=== PATIENT | male | born 1980 | race Caucasian/White ===

== ENCOUNTER 2018-06-27 19:03 | Emergency (ER) | payer OTHER ==
[2018-06-27 19:12] VITALS: BP 129/63; PULSE 86; TEMP 98; BMI 38.6
[2018-06-27 19:32] LABS: BASO % 0.7 % (0-2.0); EOS % 1.3 % (0-4.5); HEMATOCRIT 42.9 % (35.4-49); HEMOGLOBIN 14.8 GM/dL (11.7-16.9); LYMPH % 45.2 % (8-40); MCH 28.1 pg (25.7-33.7); MCHC 34.4 g/dl (32.0-35.9); MEAN CELL VOLUME 81.7 fl (80-96); MEAN PLT VOLUME 9.5 fl (7.5-11.1); MONO % 6.9 % (3.8-10.2); NEUT % 45.9 % (42.8-82.8); PLATELET COUNT 275 K/MM3 (134-434); RBC 5.26 M/mm3 (4.00-5.60); WHITE BLOOD COUNT 8.2 K/mm3 (4.0-10.0)
--- NOTE | 2018-06-27 19:33 | PDOC ---
History of Present Illness <Cole Hayes - Last Filed: 06/27/18 21:19> - History of Present Illness Initial Comments: 37yo M with history of HLD complaining of chest pain. Patient states the pain started three days ago and he feels like he got hit in the chest. 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 It is rated 10/10 at its worst, non- exertional, and non-radiating. No nausea, vomiting, or diaphoresis. It is non- radiating. The pain is at its worst in the morning and gradually improving throughout the day, now rated 3/10. He can replicate his pain by squeezing his chest by hunching over. No personal or family history of GA. Denies shortness of breath. No hemoptysis, no recent surgical history, no recent mobilization, no hormone use, no history of DVT or PE. Denies fever or chills. <Kerry Lazo - Last Filed: 06/27/18 23:46> - General Chief Complaint: Chest Pain Stated Complaint: CHEST AND BACK PAIN Time Seen by Provider: 06/27/18 19:30 Past History <Cole Hayes - Last Filed: 06/27/18 21:19> - Past Medical History COPD: No Hypercholesterolemia: Yes - Suicide/Smoking/Psychosocial Hx Smoking History: Never smoked Have you smoked in the past 12 months: No Information on smoking cessation initiated: No Hx Alcohol Use: No Drug/Substance Use Hx: No <Kerry Lazo - Last Filed: 06/27/18 23:46> - Past Medical History Allergies/Adverse Reactions: Allergies Allergy/AdvReac Type Severity Reaction Status Date / Time No Known Allergies Allergy Verified 06/27/18 19:12 *Physical Exam - Vital Signs Last Vital Signs Temp Pulse Resp BP Pulse Ox 98.0 F 86 16 129/63 100 06/27/18 19:10 06/27/18 19:10 06/27/18 19:10 06/27/18 19:10 06/27/18 19:10 <Cole Hayes - Last Filed: 06/27/18 21:19> - Vital Signs Last Vital Signs Temp Pulse Resp BP Pulse Ox 98.0 F 86 16 129/63 100 06/27/18 19:09 06/27/18 19:09 06/27/18 19:09 06/27/18 19:09 06/27/18 19:09 <Kerry Lazo - Last Filed: 06/27/18 23:46> Moderate Sedation - Procedure Monitoring Vital Signs: Procedure Monitoring Vital Signs Temperature 98.0 F 06/27/18 19:10 Pulse Rate 86 06/27/18 19:10 Respiratory Rate 16 06/27/18 19:10 Blood Pressure 129/63 06/27/18 19:10 O2 Sat by Pulse Oximetry (%) 100 06/27/18 19:10 <Cole Hayes - Last Filed: 06/27/18 21:19> - Procedure Monitoring Vital Signs: Procedure Monitoring Vital Signs Temperature 98.0 F 06/27/18 19:09 Pulse Rate 86 06/27/18 19:09 Respiratory Rate 16 06/27/18 19:09 Blood Pressure 129/63 06/27/18 19:09 O2 Sat by Pulse Oximetry (%) 100 06/27/18 19:09 <Kerry Lazo - Last Filed: 06/27/18 23:46> ED Treatment Course - LABORATORY CBC & Chemistry Diagram: 06/27/18 19:07 06/27/18 19:07 - ADDITIONAL ORDERS Additional order review: Laboratory Results 06/27/18 19:07 Sodium 139 Potassium 4.2 Chloride 104 Carbon Dioxide 30 Anion Gap 6 L BUN 14 Creatinine 1.2 Creat Clearance w eGFR > 60 Random Glucose 114 H Calcium 9.0 Total Bilirubin 0.5 AST 34 ALT 80 H Alkaline Phosphatase 86 Creatine Kinase 436 H Creatine Kinase Index 0.7 CK-MB (CK-2) 3.3 Troponin I < 0.02 Total Protein 8.1 Albumin 4.1 06/27/18 19:07 RBC 5.26 MCV 81.7 MCHC 34.4 RDW 14.0 MPV 9.5 Neutrophils % 45.9 Lymphocytes % 45.2 H Monocytes % 6.9 Eosinophils % 1.3 Basophils % 0.7 - Medications Given in the ED: ED Medications Discontinued Medications Generic Name Dose Route Start Last Admin Trade Name Freq PRN Reason Stop Dose Admin Acetaminophen 1,000 mg 06/27/18 20:05 06/27/18 20:34 Ofirmev Injection - IVPB 06/27/18 20:06 1,000 mg ONCE ONE Administration <Cole Hayes - Last Filed: 06/27/18 21:19> - LABORATORY CBC & Chemistry Diagram: 06/27/18 19:07 06/27/18 19:07 <Kerry Lazo - Last Filed: 06/27/18 23:46> *DC/Admit/Observation/Transfer - Discharge Dispostion Decision to Admit order: No <Freddy,Cole - Last Filed: 06/27/18 21:19> <Kerry Lazo - Last Filed: 06/27/18 23:46> Diagnosis at time of Disposition: Atypical chest pain - Discharge Dispostion Disposition: HOME - Referrals Referrals: Brandan Sprague MD [Staff Physician] - - Patient Instructions Printed Discharge Instructions: DI for Atypical Chest Pain Additional Instructions: Follow-up with your primary care provider next week. Return to the emergency department for any severe worsening symptoms or for any concerns. Okay to take [id number] Tylenol as directed on package as needed for pain. - Post Discharge Activity Forms/Work/School Notes: Back to Work
[2018-06-27 20:05] LABS: ALBUMIN 4.1 g/dl (3.4-5.0); ALK PHOS 86 U/L (45-117); ANION GAP 6 MMOL/L (8-16); BILIRUBIN,TOTAL 0.5 mg/dL (0.2-1); BLOOD UREA NITROGEN 14 mg/dL (7-18); CHLORIDE 104 mmol/L (98-107); CO2 30 mmol/L (21-32); CREATININE 1.2 mg/dL (0.55-1.3); GLUCOSE,RANDOM 114 mg/dL (74-106); POTASSIUM 4.2 mmol/L (3.5-5.1); SGOT/AST 34 U/L (15-37); SGPT/ALT 80 U/L (13-61); SODIUM 139 mmol/L (136-145); TOT PROT 8.1 g/dl (6.4-8.2)
[2018-06-27] MEDS ORDERED: ACETAMINOPHEN 1000 MG/100 ML VIAL (NON FORMULARY) IVPB ONE (20:05)
[2018-06-27] MEDS ORDERED: ACETAMINOPHEN INJECTION 100 ML IVPB ONE (20:28)
--- NOTE | 2018-06-27 21:01 | PDOC ---
Attending Attestation - HPI HPI: This patient is a 37 year old Nepalese-speaking male, with PMHx of HLD, lung infection (2008), comatose for 1 week [place] in [place] in the past, who presents with 3 days of chest pain. He describes his chest pain as strong, left-sided, worse when leaning forward, rates 3/10 upon arrival to ER, currently 6/10. He also complains of neck and back pain. Denies any palpitations or shortness of breath. Social Hx: Works in construction. Denies smoking history. 06/27/18 21:10 - Physicial Exam PE: Vitals: Triage Vital signs reviewed General Appearance: no acute distress, well nourished well developed Head: Atraumatic Neck: Supple; No Nuchal rigidity Chest Wall: Nontender Cardiac: Regular rate and rhythm, no murmurs, no rubs, no gallops Lungs: Clear to auscultation bilateral, good air movement bilaterally Extremities: Full range of motion to all extremities, no cyanosis, clubbing, or edema Skin: Warm and dry, no rashes or lesions, no rash, no petechiae Neuro: AOX3; Strength intact to all extremities, Sensation intact to all extremities, gait normal Psych: Normal mood, normal affect <Monie Arana - Last Filed: 06/27/18 21:13> - Resident Resident Name: Kerry Lazo - ED Attending Attestation I have performed the following: I have examined & evaluated the patient, The case was reviewed & discussed with the resident, I agree w/resident's findings & plan, Exceptions are as noted - Medical Decision Making 06/27/18 21:23 Heart score 1 atypical story Chest x-ray within normal limits troponin negative 1 Patient will follow up with his primary care provider this week Likely musculoskeletal nonexertional in nature Findings, the need for follow-up and strict return instructions discussed with patient. <Cole Hayes - Last Filed: 06/27/18 21:24> Heart Score/ECG Review - History History: Slightly suspicious - Electrocardiogram EKG: Normal - Age Age: </= 45 - Risk Factors Risk Factors Heart Score: Yes Hx Hypercholesterolemia Based on the list above the patient has:: 1-2 risk factors - Troponin Troponin: </= normal limit - Score Heart Score - Total: 1 - ECG Impressions Comment:: 06/27/18 21:22 EKG performed at 1913 demonstrates normal sinus rhythm no ST elevations isolated T-wave inversion in lead 3 Interpreted by me. <Cole Hayes - Last Filed: 06/27/18 21:24>
--- NOTE | 2018-06-28 16:51 | EKG ---
Test Reason : Blood Pressure : / mmHG Vent. Rate : 076 BPM Atrial Rate : 076 BPM P-R Int : 166 ms QRS Dur : 108 ms QT Int : 380 ms P-R-T Axes : 030 043 017 degrees QTc Int : 427 ms NORMAL SINUS RHYTHM NORMAL ECG NO PREVIOUS ECGS AVAILABLE Confirmed by MD ANGELINE, CECE ([id number]) on 06/28/2018 4:51:22 PM Referred By: Confirmed By:CECE MARCUS MD
== END 2018-06-27 21:54 | disposition home or self-care (01) ==
LOC: JER 19:03
PROC: 3E033NZ Introduction of Analgesics, Hypnotics, Sedatives into Peripheral Vein, Percutaneous Approach (ICD-10-PCS; principal; 2018-06-27)
DX: R07.89 Other chest pain (principal); E78.5 Hyperlipidemia, unspecified
CPT/HCPCS: 36415; 71046-TC-FY; 80053; 82550; 82553; 84484; 85025; 93005; 93010; 96374; 99284-25; J0131

== ENCOUNTER 2018-11-03 08:40 | Emergency (ER) | payer OTHER | END 2018-11-03 10:08 | disposition home or self-care (01) | LOC: JERFT 08:40 ==

== ENCOUNTER 2023-07-27 13:35 | Emergency (ER) | payer OTHER ==
[2023-07-27 13:42] VITALS: RESP 18; BMI 44.7
[2023-07-27] MEDS ORDERED: TETRACAINE/BENZOCAINE/BUTAMBEN 20 GM SPR TP ONE (14:21)
[2023-07-27] MEDS ORDERED: BENZOCAINE 20% 57 GM BOTTLE TP ONE (14:31)
[2023-07-27 15:41] LABS: EOS % 1.7 % (0-4.5); HEMOGLOBIN 14.5 GM/dL (11.7-16.9); LYMPH % 45.7 % (8-40); MCH 26.4 pg (25.7-33.7); MCHC 32.2 g/dl (32.0-35.9); MEAN PLT VOLUME 9.1 fl (7.5-11.1); MONO % 8.9 % (3.8-10.2); NEUT % 42.7 % (42.8-82.8); PLATELET COUNT 265 10^3/uL (134-434); RBC 5.49 M/mm3 (4.00-5.60); RDW 14.6 % (11.9-15.9); WHITE BLOOD COUNT 5.6 K/mm3 (4.0-10.0)
[2023-07-27 15:47] LABS: INR 1.07 (0.83-1.09); PROTHROMBIN TIME (PATIENT) 12.4 SEC (9.7-13.0)
[2023-07-27 15:49] LABS: ACTIVATED PTT 31.6 SECONDS (25.2-36.5)
[2023-07-27 15:59] LABS: POTASSIUM 4.6 mmol/L (3.5-5.1)
[2023-07-27 16:01] LABS: CALCIUM 10.1 mg/dL (8.5-10.1)
[2023-07-27 16:03] LABS: BLOOD UREA NITROGEN 12.6 mg/dL (7-18)
[2023-07-27 16:07] LABS: BILIRUBIN,TOTAL 0.7 mg/dL (0.2-1); TOT PROT 7.5 g/dl (6.4-8.2)
[2023-07-27 16:39] LABS: ARTERIAL BLD GAS O2 SATURATION 97.7 % (95-98); ARTERIAL BLOOD GAS BASE EXCESS 2.3 mmol/L (-2-2); ARTERIAL BLOOD GAS PO2 98.4 mmHg (80-100); ARTERIAL BLOOD GAS pH 7.448 (7.350-7.450)
[2023-07-27 16:43] LABS: ALLENS TEST POSITIVE
[2023-07-27 18:14] VITALS: BP 139/80; PULSE 90; TEMP 98.7
== END 2023-07-27 18:14 | disposition home or self-care (01) ==
LOC: JER 13:35
DX: T59.811A Toxic effect of smoke, accidental (unintentional), initial encounter (principal)
CPT/HCPCS: 36415; 36600; 80053; 82375; 82803; 83605; 85025; 85610; 85730; 99283-25